=== PATIENT | female | born 1960 | race Caucasian/White ===

== ENCOUNTER 2021-04-25 08:41 | Outpatient (CLI) | payer OTHER, SELFPAY ==
--- NOTE | ~2021-04-25 | MM_ITS ---
EXAMINATION: MM screening joseph BI w albin HISTORY: Screening TECHNIQUE: Craniocaudal and mediolateral oblique 3-D tomosynthesis images were obtained and synthetic 2-D images were generated. CAD analysis was submitted and interpreted. COMPARISON: 07/31/2015 BREAST PARENCHYMAL COMPOSITION: There are scattered areas of fibroglandular density. FINDINGS: There is no evidence of suspicious mass, calcification, or architectural distortion to sugg est malignancy in either breast. There has been no suspicious interval change. IMPRESSION: 1. No mammographic evidence of malignancy. 2. Recommend routine screening mammography in one year. BI-RADS Category 1: Negative Reviewed, dictated and finalized at location A.
== END 2021-04-25 08:42 | disposition home or self-care (01) ==
LOC: ANHIMG 08:44
PROVIDERS: PCP Emergency Medicine; Visit Provider Emergency Medicine
DX: Z12.31 Encounter for screening mammogram for malignant neoplasm of breast (principal)
CPT/HCPCS: 77063; 77067

== ENCOUNTER 2021-08-30 07:10 | Outpatient (RCR) | payer OTHER, SELFPAY ==
[2021-08-30] MEDS: ACETAMINOPHEN 325 MG TABLET 650 MG PO (07:38)
[2021-08-30] MEDS: FAMOTIDINE 20 MG TABLET PO (07:38)
[2021-08-30] MEDS: diphenhydrAMINE HCl CAP 25 MG CAPSULE PO (07:38)
[2021-08-30 07:44] VITALS: BP 122/60; PULSE 52; RESP 24; TEMP 36.3; O2SAT 98
--- NOTE | 2021-08-30 08:24 | PC.NURSE ---
Patient is also on Metformin, patient is unsure of dose.
[2021-08-30 09:10] VITALS: BP 115/61; PULSE 49; O2SAT 98
== END 2021-08-30 17:00 ==
LOC: AMCINF 07:10
PROVIDERS: PCP Internal Medicine; Referring Provider Internal Medicine; Visit Provider Internal Medicine Hematology & Oncology
DX: U07.1 COVID-19 (principal); I10 Essential (primary) hypertension
CPT/HCPCS: A9270; M0247